=== PATIENT | female | born 1985 | race Hispanic/Latino ===

== ENCOUNTER 2020-08-21 20:41 | Emergency (ER) | payer SELFPAY ==
[2020-08-21 22:01] LABS: Basophils % (Auto) 0.3 % (0.0-1.8); Eosinophils # (Auto) 0.1 K/mm3 (0.0-0.4); Eosinophils % (Auto) 1.1 % (0.0-4.3); Hematocrit 40.9 % (30.3-42.9); Hemoglobin 14.3 gm/dl (10.1-14.3); Lymphocytes # (Auto) 1.8 K/mm3 (1.2-5.4); Lymphocytes % (Auto) 20.3 % (13.4-35.0); Mean Corpuscular HGB Conc 35 % (30-34); Mean Corpuscular Volume 90 fl (79-97); Monocytes # (Auto) 0.8 K/mm3 (0.0-0.8); Monocytes % (Auto) 8.7 % (0.0-7.3); Platelet Count 314 K/mm3 (140-440); Red Blood Count 4.52 M/mm3 (3.65-5.03); Red Cell Distribution Width 12.9 % (13.2-15.2)
[2020-08-21 22:04] LABS: Alanine Aminotransferase 210 units/L (7-56); Albumin 3.9 g/dL (3.9-5); Blood Urea Nitrogen 8 mg/dL (7-17); Calcium 8.6 mg/dL (8.4-10.2); Hemolysis Index 11
[2020-08-21 22:06] LABS: BUN/Creatinine Ratio 13
--- NOTE | 2020-08-21 22:46 | XRay Report ---
CHEST 2 VIEWS INDICATION / CLINICAL INFORMATION: chest pain. COMPARISON: None available. FINDINGS: SUPPORT DEVICES: None. HEART / MEDIASTINUM: No significant abnormality. LUNGS / PLEURA: Clear lungs. No significant pleural effusion. No pneumothorax. ADDITIONAL FINDINGS: No significant additional findings. IMPRESSION: 1. No acute abnormality of the chest. Signer Name: Chivo Nguyen MD Signed: 08/21/2020 10:41 PM Workstation Name: [id number]
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
[2020-08-22] MEDS ORDERED: HYDROcodone/ACETAMINOPHEN 5-325 MG TAB PO ONE (00:03)
[2020-08-22 00:34] VITALS: BP 146/88
--- NOTE | 2020-08-23 17:52 | Electrocardiograph Report ---
[facility] Test Date: 2020-08-21 Test Time: 21:27:34 Pat Name: VINAY GREEN Department: Room: Gender: F Bookkeeper: MARIANNA : 1985 Requested By: BENITO BERRIOS Order Number: [id number] Reading MD: Ya Lin Measurements Intervals [place] Rate: 63 P: 34 WY: 142 QRS: 87 QRSD: 87 T: 79 QT: 425 QTc: 436 Interpretive Statements Sinus rhythm No previous ECG available for comparison Electronically Signed On 08-23-2020 17:52:15 EDT by Ya Lin
== END 2020-08-22 00:15 | disposition home or self-care (01) ==
LOC: ED 20:41
DX: S00.83XA Contusion of other part of head, initial encounter (principal); S39.91XA Unspecified injury of abdomen, initial encounter; R07.89 Other chest pain; I10 Essential (primary) hypertension; F17.200 Nicotine dependence, unspecified, uncomplicated; F12.90 Cannabis use, unspecified, uncomplicated; Z79.899 Other long term (current) drug therapy; Y04.8XXA Assault by other bodily force, initial encounter; Y93.89 Activity, other specified; Y92.89 Other specified places as the place of occurrence of the external cause; Y99.8 Other external cause status
CPT/HCPCS: 36415; 71046; 80053; 84484; 84703; 85025; 93005